=== PATIENT | male | born 1955 | race Caucasian/White ===

== ENCOUNTER 2022-08-27 08:44 | Observation (INO) ==
[2022-08-27] MEDS ORDERED: IOPAMIDOL 100 ML BOTTLE IV ONE (08:45)
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
[2022-08-27 09:20] LABS: POC INR 1.2 (0.8-1.2); POC Pro Time 13.8 (11.9-14.5)
[2022-08-27 09:31] LABS: POC Calcium, Ionized 1.11 (1.16-1.32); POC Creatinine 0.9 (0.6-1.2); POC Potassium 3.6 (3.3-5.1)
--- NOTE | 2022-08-27 09:46 | Cat Scan Report ---
History: Acute stroke symptoms with right-sided visual problems for the past two days, prostate cancer TECHNIQUE: Brain was imaged without contrast in axial plane at 2.5 mm intervals. Sagittal and coronal reformats were created. The radiation exposure was limited using dose reduction technology. FINDINGS: There is moderate diffuse white matter disease with confluent areas of abnormal decreased attenuation in the centrum semiovale. The greatest involvement is in the parietal lobes but there is also frontal lobe involvement. An acute infarct is not detected. There is no hemorrhage or mass effect. The ventricles are normal in size. There is very little atrophy. The prior brain MRI done on 03/07/22 there is a small subcortical white matter infarct in the right parietal lobe and small cortical infarcts along the upper convexities of both parietal lobes. These are difficult to clearly identify on today's study. Bone windows show no skull lesion. The visualized sinuses are clear. IMPRESSION: Moderate white matter ischemia or degeneration in the frontal and parietal lobes. no acute abnormality is detected Dr. Fitzgerald was called with the report Interpreted and Authenticated by: Savage Vallejo 08/27/22
[2022-08-27 09:55] LABS: Basophils # (Auto) 0.04 K/mcL (0.00-0.30); Basophils % (Auto) 0.8 % (0.0-2.0); Eosinophils # (Auto) 0.23 K/mcL (0.00-0.70); Eosinophils % (Auto) 4.4 % (0.0-7.0); Hematocrit 42.8 % (40.1-51.0); Hemoglobin 14.7 g/dL (13.7-17.5); Lymphocytes # (Auto) 1.57 K/mcL (1.50-4.80); Lymphocytes % (Auto) 29.8 % (15.5-49.0); Mean Corpuscular HGB Conc 34.3 g/dL (31.0-36.0); Mean Platelet Volume 10.5 fL (8.8-12.5); Monocytes # (Auto) 0.45 K/mcL (0.10-0.90); Monocytes % (Auto) 8.6 % (1.0-12.0); Neutrophils % (Auto) 56.2 % (38.0-78.0); Platelet Count 184 K/mcL (140-440); RBC 4.81 M/mcL (4.63-6.08); Red Cell Distribution Width 12.1 % (11.5-14.5); WBC 5.3 K/mcL (4.5-11.0)
--- NOTE | 2022-08-27 10:18 | EKG ---
[facility] Test Date: 2022-08-27 Pat Name: Clifford Goode Department: ED Room: Gender: Male [employer]: LR : 1955 Requested By: Danilo Fitzgerald Order Number: [id number] Reading MD: Abel Vallejo M.D. Measurements Intervals [place] Rate: 58 P: 17 [place]: 216 QRS: 50 QRSD: 154 T: 1 QT: 452 QTc: 443 Interpretive Statements Sinus rhythm Borderline prolonged [place] interval Right bundle branch block Electronically Signed On 08-27-2022 10:18:06 PST by Abel Vallejo M.D. /store/[email or web address]/[id number]
[2022-08-27 10:20] LABS: ALT/SGPT 29 U/L (<40); AST/SGOT 26 U/L (<40); Albumin 3.8 gm/dL (3.2-5.2); Alkaline Phosphatase 82 U/L (39-117); Bilirubin,Direct 0.3 mg/dL (<0.3); Bilirubin,Total 1.1 mg/dL (0.1-1.0); Globulin 2.6 gm/dL (2.2-3.7)
[2022-08-27] MEDS ORDERED: FLUORESCEIN OD ONE (11:57)
[2022-08-27] MEDS ORDERED: PROPARACAINE 0.5% OPHTH DROPS 15 ML OD ONE (11:58)
--- NOTE | 2022-08-27 12:35 | Magnetic Resonance Report ---
History: New stroke symptoms with loss of vision right eye TECHNIQUE: The brain was imaged using stroke protocol. FINDINGS: There are multiple small acute, nonhemorrhagic infarcts above the tentorium. The majority of them are located in the right frontal and parietal lobe. Some are cortical and others are subcortical in location. There are also a couple small acute infarcts anteriorly in the left frontal lobe. There is a 3 x 7 mm lacunar infarct in the right globus pallidus and there is a tiny lacunar infarct in the head of the right caudate nucleus. Another small infarct is present along the superior border of the right temporal lobe. There is sparing of the visual cortex. The infarcts range in size from 2 to 7.5 mm in diameter. There were a few similar appearing peripheral infarcts on the prior MRI done on 03/07/22.. No mass or hemorrhage are present. The T2 and FLAIR sequences reveal the presence of extensive white matter disease with multiple small areas of increased signal in the tolbert radiata and centrum semiovale above the tentorium. The brainstem and cerebellum are normal. The ventricles are normal in size. There is no abnormal extra-axial fluid collection. IMPRESSION: Shower of multiple new nonhemorrhagic infarcts in the right hemisphere with a few small acute infarcts in the left frontal lobe Interpreted and Authenticated by: Savage Vallejo 08/27/22
--- NOTE | 2022-08-27 15:16 | Cat Scan Report ---
History: Multiple new strokes TECHNIQUE: Following injection of intravenous nonionic contrast the patient was imaged during the arterial phase from the aortic arch to the top of the head. Sagittal and coronal reformats of the head and neck along with MIPS images of the head and neck were acquired. Curvilinear reformats of the carotid arteries were acquired. Radiation exposure was limited using dose reduction technology. FINDINGS: NECK: The aortic arch and great vessels arising from the aorta are normal. There is no aortic aneurysm or dissection. There is a moderate amount calcified plaque in the proximal left internal carotid creating up to 50% stenosis. Mid and distal portion of the left internal carotid is tortuous but normal in caliber. There is mild plaque formation at the origin the right internal carotid causing less than 25% stenosis. Distal portion is tortuous but normal in caliber. No ulcerated plaque is seen in either side of the neck. There is no thrombosis or dissection of the carotids. The vertebral arteries are normal and symmetric. Incidentally noted are couple small nodules in the thyroid. These are unchanged. They have low attenuation and may be colloid cysts. Brain: The intracranial portions of both internal carotids are normal without evidence of thrombosis or stenosis. There is mild plaque formation in the cavernous portions of both internal carotids. The anterior and middle cerebral arteries are normal. The intracranial portions of the vertebrals are normal. The basilar artery and posterior fossa circulation is normal. There is no evidence of intracranial vascular occlusion or stenosis. No aneurysm or vascular malformation are present. No enhancing lesion is seen. There are patent anterior and posterior communicating arteries. Comparison with the prior CT angiogram done on 03/07/22 shows no change. 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 Normal intracranial arterial circulation. Dr. Fitzgerald was called with the report Interpreted and Authenticated by: Savage Vallejo 08/27/22
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
[2022-08-27] MEDS ORDERED: ACETAMINOPHEN 325 MG TABLET PO PRN (16:20)
[2022-08-27] MEDS ORDERED: hydrALAZINE 20 MG/ML VIAL IV PRN (16:20)
[2022-08-27] MEDS ORDERED: LABETALOL 5 MG/ML ML IV PRN (16:20)
[2022-08-27] MEDS ORDERED: ONDANSETRON 4 MG/2 ML VIAL IV PRN (16:20)
[2022-08-27] MEDS ORDERED: PNEUMOCOCCAL 23-VAL P-SAC VAC 0.5 ML SYRINGE IM ONE (16:33)
[2022-08-27] MEDS: APIXABAN 5 MG TABLET PO SCH (20:28)
[2022-08-27] MEDS: DOCUSATE SODIUM 100 MG CAPSULE PO SCH ×2 (20:28→20:36)
[2022-08-27] MEDS: SENNOSIDES 1 TABLET PO SCH ×2 (20:28→20:36)
[2022-08-27] MEDS ORDERED: ATORVASTATIN 40 MG TABLET PO SCH (21:00)
[2022-08-27] MEDS: 0.9 % SODIUM CHLORIDE 10 ML SYRINGE IV SCH (22:00)
[2022-08-28] MEDS: 0.9 % SODIUM CHLORIDE 10 ML SYRINGE IV SCH (05:51)
[2022-08-28 06:44] LABS: Estimated Average Glucose(eAG) 140 mg/dL; Hemoglobin A1C 6.5 % Hgb (4.0-6.0)
[2022-08-28 07:14] LABS: HDL Cholesterol 34 mg/dL (>40); LDL Cholesterol,Calculated 76 mg/dL (<100); Non-HDL Cholesterol 97 mg/dL (<130); Triglycerides 106 mg/dL (<150)
[2022-08-28 07:20] LABS: ALT/SGPT 29 U/L (<40); AST/SGOT 28 U/L (<40); Albumin 3.8 gm/dL (3.2-5.2); Albumin/Globulin Ratio 1.5 (1.0-2.3); Alkaline Phosphatase 80 U/L (39-117); Bilirubin,Direct 0.3 mg/dL (<0.3); Bilirubin,Total 1.2 mg/dL (0.1-1.0); Blood Urea Nitrogen 10 mg/dL (8-23); Calcium 8.8 mg/dL (8.6-10.4); Carbon Dioxide 25 mmol/L (22-30); Chloride 104 mmol/L (96-108); Globulin 2.5 gm/dL (2.2-3.7); Glomerular Filtration Rate 87; Glucose 129 mg/dL (70-105); Lactate Dehydrogenase 156 U/L (135-225); Phosphorous 3.7 mg/dL (2.5-4.5); Uric Acid 6.4 mg/dL (2.5-8.0)
[2022-08-28] MEDS: APIXABAN 5 MG TABLET PO SCH (08:17)
[2022-08-28] MEDS: DOCUSATE SODIUM 100 MG CAPSULE PO SCH (08:18)
[2022-08-28] MEDS ORDERED: CLOPIDOGREL 75 MG TABLET PO SCH (09:00)
[2022-08-28] MEDS ORDERED: FLUoxetine HCL 10 MG CAPSULE PO SCH ×2 (09:00→09:15)
[2022-08-28] MEDS ORDERED: ATORVASTATIN 40 MG TABLET PO SCH (09:00)
[2022-08-28] MEDS ORDERED: ENOXAPARIN 40 MG/0.4 ML SYRINGE SQ SCH (09:00)
[2022-08-28] MEDS ORDERED: ASPIRIN 81 MG TAB.CHEW CHEWED SCH (09:00)
--- NOTE | 2022-08-28 09:23 | Discharge Summary ---
Discharge Provider Provider IMPORTANT FOLLOW-UP INFORMATION FOR PCP: Patient information: Note initiated : 08/28/22 at 9:18 am Service Date, if different from initiated Date: [] Patient: Clifford Goode 67 y/o M admitted on 08/27/22 for R sided visual problems x2 days. Chief Complaint: [] Date of admission: 08/27/22 16:15 Discharge date: 08/28/22 Primary care physician: Jade Hollingsworth DO Consults: 08/27/22 Consult to Physician [CONS] Stat Comment: Consulting Provider: Romulo Clifford Reason For Exam: Physician to Consult 08/27/22 09:00 Consult to Physician [CONS] Stat Comment: Consulting Provider: [facility] Reason For Exam: Physician to Consult COURSE Hospital Course Hospital course: Mr. Goode is a 67 year old With a history of coronary artery disease status post prior stents, acute ischemic stroke in February 2022, essential hypertension, hyperlipidemia who presented to the emergency department with a chief complaint of right vision changes for 2 days. The patient was concerned that his symptoms were secondary to another stroke. The patient was on dual antiplatelet therapy from his recent stroke and says he ran out of Plavix about 2 days prior to presenting in the emergency department. In the emergency department, the patient had noncontrast CT head that did not show any acute changes followed by a MRI brain without contrast which showed multiple new nonhemorrhagic infarcts in the right hemisphere with a few small acute infarcts in the left frontal lobe. Telestroke neurology was consulted while the patient was in the ED, recommended obtaining a CTA head and neck as well as a transthoracic echocardiogram and admitting the patient for observation and further stroke work-up. Review of the patient's recent cardiology visit following the prior stroke indicate that the patient had a 2-week night monitor that showed paroxysmal atrial tachycardia that was possibly secondary to brief atrial fibrillation lasting a few seconds. At that time, cardiology discussed the possibility of an implantable night monitor or using an apple watch to monitor for possible atrial fibrillation. Apparently, the patient said that he would pursue using an apple watch which the patient did however it sounds like the device he was wearing does not continuously monitor pulse but instead requires him to activate it to check his pulse. Additionally, the patient has had episodes of rapid irregular heart rate that resolved spontaneously. I spoke with the telemetry neurologist at [place] in [facility] myself and presented the information and my concerns for possible undiagnosed atrial fibrillation. Neurology felt that it was reasonable to start the patient on oral anticoagulation at this time and also recommended pursuing an implantable night monitor for ongoing evaluation for atrial fibrillation or atrial flutter. 08/28 No significant events overnight, this morning the patient says his right vision changes have improved slightly. CTA head neck did not show any significant hemodynamic stenosis. Transthoracic echocardiogram did not reveal a source of embolic stroke. telemetry monitor overnight did not show any evidence of atrial fibrillation or atrial flutter. The patient did have episodic hypoxia at night. Hemoglobin A1c 6.5, LDL level 76. Discharged the patient to home on Eliquis 5 mg twice daily. I did not continue aspirin and Plavix at discharge, will hold aspirin until the patient follows up with cardiology to decide whether aspirin and Eliquis would be appropriate or perhaps Eliquis mono therapy would be sufficient given his history of CAD and high suspicion of paroxysmal atrial fibrillation or atrial flutter. I also recommend the patient have a implantable night monitor and cardiology can arrange this at follow-up. I also referred the patient to pulmonology for a sleep study. All other home medications continued as before admission. Physical exam Head: Atraumatic, normal inspection. Eyes: normal appearance, no scleral icterus. Neck: full ROM Respiratory: no respiratory distress. Cardiovascular: normal rate and rhythm, S1, S2. GI/Abdominal: soft, nontender, no guarding. Extremities: full range of motion, nontender. Neurological: CN II-XII intact, intact motor, intact sensation. Psychiatric: normal mood. Skin: warm, normal color Discharge diagnosis: Acute ischemic stroke, likely cardioembolic Time Spent with Patient Time attestation: Total time spent providing and/or coordinating discharge services: Time spent: Less than 30 minutes EXAM Constitutional Vitals: Temp Pulse Resp BP Pulse Ox O2 Del Method O2 Flow Rate 98.1 F 61 18 147/71 99 0 08/28/22 08:01 08/28/22 08:01 08/28/22 08:01 08/28/22 08:01 08/28/22 08:01 08/28/22 07:03 08/28/22 07:03 Discharge Data Data Completed and Pending Labs on day of discharge: Labs from last 24 hours 08/28/22 08/27/22 08/27/22 05:31 09:22 09:20 WBC RBC Hgb Hct POC Hct 45.0 MCV MCH MCHC RDW Plt Count MPV Immature Gran % (Auto) Neut % (Auto) Lymph % (Auto) Sierra % (Auto) Eos % (Auto) Baso % (Auto) Lymph # (Auto) [place] # (Auto) Eos # (Auto) Baso # (Auto) Immature Gran # Absolute Neutrophils POC PT POC INR APTT POC Sodium 141 Sodium 138 POC Potassium 3.6 Potassium 4.1 POC Chloride 102 Chloride 104 Carbon Dioxide 25 POC Total CO2 26.0 Anion Gap 9.0 POC BUN 7 BUN 10 Creatinine 0.9 POC Creatinine 0.9 GFR Calculation 87 Glucose 129 H POC Glucose 180 H Hemoglobin A1c 6.5 H Estim Average Glucose 140 Uric Acid 6.4 Calcium 8.8 POC WB Ioniz Calcium 1.11 L Phosphorus 3.7 Magnesium 2.0 Total Bilirubin 1.2 H Direct Bilirubin 0.3 H GGT 66 H AST 28 ALT 29 Alkaline Phosphatase 80 Lactate Dehydrogenase 156 Total Protein 6.3 Albumin 3.8 Globulin 2.5 Albumin/Globulin Ratio 1.5 Triglycerides 106 Cholesterol 131 LDL Cholesterol, Calc 76 Non-HDL Cholesterol 97 HDL Cholesterol 34 L POC Troponin I < 0.02 08/27/22 08/27/22 08/27/22 09:17 09:12 09:12 WBC RBC Hgb Hct POC Hct MCV MCH MCHC RDW Plt Count MPV Immature Gran % (Auto) Neut % (Auto) Lymph % (Auto) Sierra % (Auto) Eos % (Auto) Baso % (Auto) Lymph # (Auto) [place] # (Auto) Eos # (Auto) Baso # (Auto) Immature Gran # Absolute Neutrophils POC PT 13.8 POC INR 1.2 APTT 28.0 POC Sodium Sodium POC Potassium Potassium POC Chloride Chloride Carbon Dioxide POC Total CO2 Anion Gap POC BUN BUN Creatinine POC Creatinine GFR Calculation Glucose POC Glucose Hemoglobin A1c Estim Average Glucose Uric Acid Calcium POC WB Ioniz Calcium Phosphorus Magnesium Total Bilirubin 1.1 H Direct Bilirubin 0.3 H GGT AST 26 ALT 29 Alkaline Phosphatase 82 Lactate Dehydrogenase Total Protein 6.4 Albumin 3.8 Globulin 2.6 Albumin/Globulin Ratio Triglycerides Cholesterol LDL Cholesterol, Calc Non-HDL Cholesterol HDL Cholesterol POC Troponin I 08/27/22 09:12 WBC 5.3 RBC 4.81 Hgb 14.7 Hct 42.8 POC Hct MCV 89.0 MCH 30.6 MCHC 34.3 RDW 12.1 Plt Count 184 MPV 10.5 Immature Gran % (Auto) 0.2 Neut % (Auto) 56.2 Lymph % (Auto) 29.8 Sierra % (Auto) 8.6 Eos % (Auto) 4.4 Baso % (Auto) 0.8 Lymph # (Auto) 1.57 Sierra # (Auto) 0.45 Eos # (Auto) 0.23 Baso # (Auto) 0.04 Immature Gran # 0.01 Absolute Neutrophils 2.96 POC PT POC INR APTT POC Sodium Sodium POC Potassium Potassium POC Chloride Chloride Carbon Dioxide POC Total CO2 Anion Gap POC BUN BUN Creatinine POC Creatinine GFR Calculation Glucose POC Glucose Hemoglobin A1c Estim Average Glucose Uric Acid Calcium POC WB Ioniz Calcium Phosphorus Magnesium Total Bilirubin Direct Bilirubin GGT AST ALT Alkaline Phosphatase Lactate Dehydrogenase Total Protein Albumin Globulin Albumin/Globulin Ratio Triglycerides Cholesterol LDL Cholesterol, Calc Non-HDL Cholesterol HDL Cholesterol POC Troponin I Discharge Plan Patient/Caregiver Discharge Instructions Activity: increase activity as tolerated Diet: Regular Diet Prescriptions: New Eliquis 5 mg tablet 5 mg PO BID Qty: 60 6RF Continued fluoxetine 10 mg tablet 10 mg PO QDAY Qty: 90 2RF amlodipine 5 mg tablet 5 mg PO QDAY Qty: 90 2RF atorvastatin 40 mg tablet 40 mg PO BID lisinopril 20 mg tablet 20 mg PO HS omeprazole 40 mg capsule,delayed release(DR/EC) 40 mg PO HS Discontinued clopidogrel 75 mg tablet 75 mg PO QDAY Qty: 90 0RF aspirin [Aspir-Low] 81 mg tablet,delayed release (DR/EC) 81 mg PO QDAY Qty: 90 6RF Follow Up Plan Follow up with: Sánchez Gomez MD [Physician] - (Post acute ischemic stroke referral for sleep study.) Jade Hollingsworth DO [Primary Care Provider] - Suresh Bills MD [Physician] - (Follow-up posthospitalization for acute ischemic stroke suspected to be secondary to cardioembolism highly suspicious for atrial fibrillation or atrial flutter. Discharged on Eliquis, holding aspirin and discontinued Plavix. Please inform as to whether the patient should also be on aspirin in addition to Eliquis. Please arrange for the patient to have an implantable night monitor for long-term monitoring post cryptogenic acute ischemic stroke.) Patient Disposition: Home, Self-Care Overall status at discharge: patient is progressing back to baseline Discharge Orders: Discharge Order (Routine); Ordered 08/28/22 Ordered By: Romulo POLLOCK VTE Deep Vein Thrombosis/Pulmonary Embolism Present on Admission: No
[2022-08-28] MEDS ORDERED: PNEUMOCOCCAL 23-VAL P-SAC VAC 0.5 ML SYRINGE IM ONE (10:45)
[2022-08-28] MEDS ORDERED: OMEPRAZOLE 20 MG CAPSULE PO SCH (21:00)
[2022-08-29] MEDS ORDERED: FLUoxetine HCL 10 MG CAPSULE PO SCH (09:00)
== END 2022-08-28 10:55 | disposition home or self-care (01) ==
LOC: ED 08:44 → ICU 08:44
PROVIDERS: ADMIT Internal Medicine; ATTEND Internal Medicine